=== PATIENT | female | born 1995 | race Caucasian/White ===

== ENCOUNTER 2019-04-14 19:57 | Emergency (ER) | payer OTHER ==
--- OUTSIDE RECORDS SUMMARY | 2019-04-14 20:13 | XMS REPORT ---
:1995 Author Organization [facility] [place] Address [address] [place] [address] Care Team Providers Name Role Phone Aislinn Elizabeth Unavailable Unavailable PROBLEMS Type Condition ICD9-CM Code [id number] Code Onset Condition SNOMED Code Dates Status Problem NSRT MPLNT SBDRM V25.5 Active CNTRCEP Problem CONTRACEPT V25.49 Active 278224600 SURVEILL NEC Problem CONTRACEPTIVE V25.9 Active [id number] MANGMT NOS ALLERGIES No Known Allergies ENCOUNTERS Encounter Location Date Diagnosis The [address] Mar, [facility] at [facility] [address] Mar, [facility] [address] Mar, LGSIL on Pap smear of cervix [facility] [place], [place] R87.612 ; Encounter for [place] [address] screening for infections with predominantly sexual mode of transmission Z11.3 ; Encounter for screening for HIV Z11.4 ; Encounter for surveillance of Nexplanon subdermal contraceptive Z30.46 and Urinary frequency R35.[address] Mar, Encounter for screening [facility] [place] examination for sexually [place] [address] transmitted disease Z11.[address] June, [facility] [address] May, Acute vulvitis N76.2 and [facility] at [place] Encounter for surveillance of [place] [address] Nexplanon subdermal contraceptive Z30.[address] May, Encounter for surveillance of [facility] [place] implantable subdermal [place] [address] contraceptive Z30.[address] Nov, [facility] at [facility] [address] Oct, [facility] at [facility] [address] Oct, Encounter for gynecological [facility] [place] examination without abnormal [place] [address] finding Z01.419 ; Encounter for screening for malignant neoplasm of cervix Z12.4 ; Encounter for screening for infections with predominantly sexual mode of transmission Z11.3 ; Encounter for screening for HIV Z11.4 ; Acute vaginitis N76.0 and Encounter for surveillance of implantable subdermal contraceptive Z30.[address] June, [facility] [address] Apr, Encounter for other [facility] [place] contraceptive management Z30.8 [place] [address] Apr, [facility] at [facility] [address] Jul, [facility] at [facility] [address] Jul, VACCIN FOR DISEASE NEC V05.8 [facility] at [facility] [id number] The [address] Apr, [facility] at [facility] [id number] The [address] Mar, [facility] at [facility] [address] Jan, [facility] at [facility] [address] Jan, [facility] at [facility] [address] The [place] [address] Kike Garsia Dec, [facility] at [facility] [id number] The [address] Oct, MEDICAL RECORDS 999.2 [facility] [address] June, Tonsillitis NOS 463 [facility] at [facility] [address] June, [facility] [address] Apr, Depression 311 and JOINT [facility] [place] PAIN-ANKLE 719.47 [place] 939172 The [address] Apr, Depression 311 [facility] at [facility] [address] Apr, Depression 311 and Glory [facility] [place] type IIb hyperlipoproteinemia [place] 939172 272.[address] Mar, Routine Well Child Exam V20.2 [facility] at [place] ; VACCIN FOR DISEASE NEC V05.8 [place] [address] ; Depression 311 and Morbid obesity 278.01 IMMUNIZATIONS No Known Immunizations SOCIAL HISTORY Never Assessed REASON FOR REFERRAL FUNCTIONAL STATUS PLAN OF CARE Activity Details Follow Up 1 Year Reason:annual exam Pending Test Thin Prep Image Guided VITAL SIGNS Height 64 in 2019-04-01 Weight 330 lbs 2019-04-01 BMI 56.64 kg/m2 2019-04-01 Blood pressure systolic 118 mm Hg 2019-04-01 Blood pressure diastolic 78 mm Hg 2019-04-01 MEDICATIONS Medication Instructions Dosage Frequency Start End Date Duration Status Date PROZAC 20 mg orally once a day 1 cap(s) 24h 30 day(s) Active Prozac 40 mg orally once a day 1 cap(s) 24h Active Nexplanon 68 subcutaneously 1 ea 17 June, Active mg once 2018 PROCEDURES Procedure Date Ordered Result Body Site SPECIMEN HANDLING CONVEYANCE FOR TRANSFER TO AN OUTSIDE Apr 01, 2019 LAB [facility]-HIV ANTIGEN W/HIV ANTIBODIES Apr 01, 2019 Rapid syphilis Apr 01, 2019 RESULTS Name Result Date Reference Range Urinanalysis Color/Clarity yellow/cloudy Leuk +1 Nitrite negative Urobili Protein negative pH 5 Blood negative Sp. Gr. Ketone Bili Glucose negative [facility] Hiv 1 Ag, HIV -1 & 2 Ab rapid test result nonreactive Rapid syphilis rapid syphillis non reactive URINE CULTURE 2019-04-01 URINE CULTURE 2019-04-01 CHLAMYDIA/GC GENITAL 2019-04-01 CHLAMYDIA, GENITAL NEGATIVE NEGATIVE GC, Genital NEGATIVE NEGATIVE REASON FOR VISIT Pap test and STI testing Insurance Providers [facility] Member Patient Patient Patient Patient Patient Subscriber Subscriber Subscriber Group Insurance Plan Plan Plan Plan ID Relationship Address Phone Name Date of ID Name Date of No Type Insurance Insurance Insurance Coverage to Subscriber Address Phone Name Dates MMCFIDELPATO CRUMP [phone] MMCFIDELIS terrence POWELLANNE [id number] CARE [place] [address] [facility] [address] CHP [phone] CHP self [place] [id number] [place] [id number] [address] [facility] [address] Medicaid HealthCare [phone] Medicaid self [place] [id number] [employer] 92 [employer] DAVID Contract Div [address] [facility] [address] FP HealthCare [phone] FPBP self [place] [id number] Medicaid Systems 92 Medicaid DAVID APG OCO Div [address] [employer] Contract [id number] Contract [facility] [address] MEDICAL (GENERAL) HISTORY Type Description Date Medical History depression Medical History up to date with imms Surgical History Nexplanon insertion-L arm 04/12/2012 Surgical History Nexplanon removal and re-insertion 04/21/2015
--- OUTSIDE RECORDS SUMMARY | 2019-04-14 20:14 | XMS REPORT ---
:1995 Author Organization [facility] [place] Address [address] [place] [address] Care Team Providers Name Role Phone Aislinn Elizabeth Unavailable Unavailable PROBLEMS Type Condition ICD9-CM Code [id number] Code Onset Condition SNOMED Code Dates Status Problem NSRT MPLNT SBDRM V25.5 Active CNTRCEP Problem CONTRACEPT V25.49 Active [id number] SURVEILL NEC Problem CONTRACEPTIVE V25.9 Active [id number] MANGMT NOS ALLERGIES No Information ENCOUNTERS Encounter Location Date Diagnosis The [address] Mar, [facility] at [facility] [address] Mar, Encounter for screening [facility] at [place] examination for sexually [place] [address] transmitted disease Z11.[address] June, [facility] at [facility] [address] May, Acute vulvitis N76.2 and [facility] at [place] Encounter for surveillance of [place] [address] Nexplanon subdermal contraceptive Z30.[address] May, Encounter for surveillance of [facility] [place] implantable subdermal [place] [address] contraceptive Z30.[address] Nov, [facility] at [facility] [address] Oct, [facility] at [facility] [address] Oct, Encounter for gynecological [facility] [place] examination without abnormal [place] [address] finding Z01.419 ; Encounter for screening for malignant neoplasm of cervix Z12.4 ; Encounter for screening for infections with predominantly sexual mode of transmission Z11.3 ; Encounter for screening for HIV Z11.4 ; Acute vaginitis N76.0 and Encounter for surveillance of implantable subdermal contraceptive Z30.[address] June, [facility] at [facility] [address] Apr, Encounter for other [facility] [place] contraceptive management Z30.8 [place] [address] Apr, [facility] at [facility] [address] Jul, [facility] at [facility] [address] Jul, VACCIN FOR DISEASE NEC V05.8 [facility] at [facility] [id number] The [address] Apr, [facility] at [facility] [id number] The [address] Mar, [facility] at [facility] [address] Jan, [facility] at [facility] [address] Jan, [facility] at [facility] [address] Dec, [facility] at [facility] [id number] The [address] Oct, MEDICAL RECORDS 999.2 [facility] at [place] [address] June, Tonsillitis NOS 463 [facility] at [facility] [address] June, [facility] at [facility] [address] Apr, Depression 311 and JOINT [facility] [place] PAIN-ANKLE 719.47 [place] [address]35[address] The Center [address] Apr, Depression 311 [facility] at [facility] [address] Apr, Depression 311 and Glory [facility] [place] type IIb hyperlipoproteinemia [place] [address] [address] Mar, Routine Well Child Exam V20.2 [facility] at [place] ; VACCIN FOR DISEASE NEC V05.8 [place] [address] ; Depression 311 and Morbid obesity 278.01 IMMUNIZATIONS No Known Immunizations SOCIAL HISTORY Never Assessed REASON FOR REFERRAL FUNCTIONAL STATUS PLAN OF CARE Activity Details Pending Test CHLAMYDIA/GC URINE VITAL SIGNS MEDICATIONS Unknown Medications PROCEDURES Procedure Date Ordered Result Body Site SPECIMEN HANDLING CONVEYANCE FOR TRANSFER TO AN OUTSIDE Mar 19, 2019 LAB RESULTS No Results REASON FOR VISIT Pap followup Insurance Providers [facility] Member Patient Patient Patient Patient Patient Subscriber Subscriber Subscriber Group Insurance Plan Plan Plan Plan ID Relationship Address Phone Name Date of ID Name Date of No Type Insurance Insurance Insurance Coverage to Subscriber Address Phone Name Dates Medicaid HealthCare 2-18 Medicaid self [place] [id number] [employer] 92 [employer] DAVID Contract Div [address] [facility] [address] CHP [phone] CHP self [place] [id number] [place] [address] [facility] [address] MMCFIDELIS ALISIA [phone] MMCFIDELIS self [place] [id number] CARE [place] [address] [facility] [address] FPBP HealthCare 18 FPBP self [place] [id number] Medicaid Systems 92 Medicaid DAVID [employer]G OCO Div [address] APG [employer]CO Contract [id number] Contract [facility] [address] MEDICAL (GENERAL) HISTORY Type Description Date Medical History depression Medical History up to date with imms Surgical History Nexplanon insertion-L arm 04/12/2012 Surgical History Nexplanon removal and re-insertion 04/21/2015
--- OUTSIDE RECORDS SUMMARY | 2019-04-14 20:14 | XMS REPORT ---
:1993 Author Organization [facility] [place] Address [address] [place] [address] Care Team Providers Name Role Phone Aislinn Elizabeth Unavailable Unavailable PROBLEMS Type Condition ICD9-CM Code [id number] Code Onset Condition SNOMED Code Dates Status Problem NSRT MPLNT SBDRM V25.5 Active CNTRCEP Problem CONTRACEPT V25.49 Active [id number] SURVEILL NEC Problem CONTRACEPTIVE V25.9 Active [id number] MANGMT NOS ALLERGIES No Information ENCOUNTERS Encounter Location Date Diagnosis The [address] Mar, [facility] at [facility] [address] Mar, [facility] at [facility] [address] Mar, LGSIL on Pap smear of cervix [facility] [place], [place] R87.612 ; Encounter for [place] [address] screening for infections with predominantly sexual mode of transmission Z11.3 ; Encounter for screening for HIV Z11.4 ; Encounter for surveillance of Nexplanon subdermal contraceptive Z30.46 and Urinary frequency R35.[address] Mar, Encounter for screening [facility] [place] examination for sexually [place] [address] transmitted disease Z11.[address] June, [facility] at [facility] [address] [address] May, Acute vulvitis N76.2 and [facility] [place] Encounter for surveillance of [place] [address] Nexplanon subdermal contraceptive Z30.[address] May, Encounter for surveillance of [facility] [place] implantable subdermal [place] [address] contraceptive Z30.[address] Nov, [facility] at [facility] [address] [address] Oct, [facility] at [facility] [address] [address] Oct, Encounter for gynecological [facility] [place] examination without abnormal [place] [address] finding Z01.419 ; Encounter for screening for malignant neoplasm of cervix Z12.4 ; Encounter for screening for infections with predominantly sexual mode of transmission Z11.3 ; Encounter for screening for HIV Z11.4 ; Acute vaginitis N76.0 and Encounter for surveillance of implantable subdermal contraceptive Z30.[address] June, [facility] at [facility] [address] [address] Apr, Encounter for other [facility] [place] contraceptive management Z30.8 [place] [address] Apr, [facility] at [facility] [address] [address] Jul, [facility] at [facility] [address] Jul, VACCIN FOR DISEASE NEC V05.8 [facility] at [facility] [id number] The [address] Apr, [facility] at [facility] [id number] The [address] Mar, [facility] at [facility] [address] [address] Jan, [facility] at [facility] [address] [address] Jan, [facility] at [facility] [address] [address] Dec, [facility] at [facility] [id number] The [address] Oct, MEDICAL RECORDS 999.2 [facility] at [facility] [address] June, Tonsillitis NOS 463 [facility] at [facility] [address] [address] June, [facility] at [facility] [address] [address] Apr, Depression 311 and JOINT [facility] [place] PAIN-ANKLE 719.47 [place] [address] [address] Apr, Depression 311 [facility] at [facility] [address] [address] Apr, Depression 311 and Glory [facility] [place] type IIb hyperlipoproteinemia [place] 250[address] 272.[address] Mar, Routine Well Child Exam V20.2 [facility] [place] ; VACCIN FOR DISEASE NEC V05.8 [address] ; Depression 311 and Morbid obesity 278.01 IMMUNIZATIONS No Known Immunizations SOCIAL HISTORY Never Assessed REASON FOR REFERRAL FUNCTIONAL STATUS PLAN OF CARE VITAL SIGNS MEDICATIONS Unknown Medications PROCEDURES No Known procedures RESULTS No Results REASON FOR VISIT urine culture result Insurance Providers [facility] Health Member Patient Patient Patient Patient Patient Subscriber Subscriber Subscriber Group Insurance Plan Plan Plan Plan ID Relationship Address Phone Name Date of ID Name Date of No Type Insurance Insurance Insurance Coverage to Subscriber Address Phone Name Dates Medicaid HealthCare Medicaid self [place] [id number] [employer] 92 [employer] DAVID Contract Div [address] [facility] [address] MMCFIDELIS ALISIA [phone] MMCFIDELIS self [place] [id number] CARE [place] [address] [facility] [address] CHP [phone] CHP self [place] [id number] [place] [address] 68 [facility] [address] FP HealthCare 18 FPBP self [place] [id number] Medicaid Systems 92 Medicaid [facility] APG OCO Div [address] [employer] Contract [id number] Contract [facility] [address] MEDICAL (GENERAL) HISTORY Type Description Date Medical History depression Medical History up to date with imms Surgical History Nexplanon insertion-L arm 04/12/2012 Surgical History Nexplanon removal and re-insertion 04/21/2015
[2019-04-14] MEDS ORDERED: Ketorolac INJ* 30 MG/ML 1 ML VIAL IV PUSH ONE (20:29)
[2019-04-14] MEDS ORDERED: Pantoprazole IV* 40 MG IV ONE (20:29)
[2019-04-14 20:55] LABS: ABS Eosinophils 0.1 10^3/ul (0-0.6); ABS Lymphocytes 2.7 10^3/ul (1.0-4.8); ABS Neutrophils 6.7 10^3/ul (1.5-7.7); Eosinophil % 0.9 %; Hematocrit 38 % (35-47); Hemoglobin 12.7 g/dL (12.0-16.0); Lymphocyte % 25.6 %; Mean Corpuscular HGB Conc 34 g/dL (31-36); Mean Corpuscular Hemoglobin 27 pg (27-31); Mean Corpuscular Volume 80 fL (80-97); Mean Platelet Volume 7.5 fL (7.4-10.4); Platelet Count 445 10^3/uL (150-450); Red Cell Distribution Width 15 % (10-15); White Blood Count 10.5 10^3/uL (3.5-10.8)
[2019-04-14 21:05] LABS: Rapid Strep Molecular Negative (Negative)
[2019-04-14 21:15] LABS: Albumin 4.4 g/dL (3.2-5.2); Albumin/Globulin Ratio 1.4 (1-3); BUN/Creatinine Ratio 9.7 (8-20); C Reactive Protein 13.03 mg/L (<8.01); Calcium 9.6 mg/dL (8.6-10.3); EGFR African American 119.4 (>60); EGFR Non-African American 98.7 (>60); Globulin 3.2 g/dL (2-4); Potassium 3.3 mmol/L (3.5-5.0); Total Bilirubin 0.3 mg/dL (0.2-1.0); Total Protein 7.6 g/dL (6.4-8.9)
[2019-04-14 21:20] LABS: HCG Pregnancy 42.82 mIU/mL
[2019-04-14 21:20] LABS: Urine Appearance Cloudy; Urine Bilirubin Negative (Negative); Urine Blood 2+ (Negative); Urine Color Yellow; Urine Glucose Negative (Negative); Urine Ketones Negative (Negative); Urine Nitrite Positive (Negative); Urine Protein 2+(100 mg/dL) (Negative); Urine Specific Gravity 1.023 (1.010-1.030); Urine Urobilinogen Negative (Negative)
--- NOTE | 2019-04-14 21:30 | ED ---
GI/ HPI - HPI Summary HPI Summary: 23 year old female presents with abdominal pain today. She went over a bump in the car and developed the pain. nothing injured the area. Pain is in the left upper quadrant. She is also been having rib pain on left side. had a previous fracture to the area Has had a cough. cough has been getting worst and she admits to some shortness of breath occasionally with it. Admits to some nausea and vomiting. she admits to a sore throat. Pain does not change when she eats anything. Denies any abnormal vaginal bleeding. No urinary symptoms. no flank pain. No previous surgeries. Has no medical conditions. - History of Current Complaint Chief Complaint: EDAbdPain Time Seen by Provider: 04/14/19 20:15 Stated Complaint: ABD PAIN PER PT Pain Intensity: 6 - Allergy/Home Medications Allergies/Adverse Reactions: Allergies Allergy/AdvReac Type Severity Reaction Status Date / Time chocolate flavor Allergy Severe See Comment Verified 04/14/19 21:12 Home Medications: Home Medications Metoclopramide TAB* [Reglan TAB*] 10 mg PO Q6H #20 tab 04/14/19 [Rx] PMH/Surg Hx/FS Hx/Imm Hx Endocrine/Hematology History: Denies: Hx Anticoagulant Therapy Respiratory History: Denies: Hx Asthma Infectious Disease History: No Infectious Disease History: Denies: Traveled Outside the [place] in Last 30 Days - Family History Known Family History: Positive: Non-Contributory - Social History Alcohol Use: Rare Substance Use Type: Reports: None Smoking Status (MU): Former Smoker Review of Systems Negative: Fever Negative: Chest Pain Positive: Cough Positive: Abdominal Pain, Vomiting, Nausea. Negative: Diarrhea All Other Systems Reviewed And Are Negative: Yes Physical Exam Triage Information Reviewed: Yes Vital Signs On Initial Exam: Initial Vitals Temp Pulse Resp BP Pulse Ox 97 F 98 15 141/111 99 04/14/19 19:59 04/14/19 19:59 04/14/19 19:59 04/14/19 19:59 04/14/19 19:59 Vital Signs Reviewed: Yes Appearance: Positive: Well-Appearing Skin: Positive: Warm, Dry Head/Face: Positive: Normal Head/Face Inspection Eyes: Positive: Normal, Conjunctiva Clear ENT: Positive: Pharynx normal Respiratory/Lung Sounds: Positive: Clear to Auscultation, Breath Sounds Present , Other - tenderness left lower ribs Cardiovascular: Positive: Normal, RRR Abdomen Description: Positive: Soft, Other: - tenderness in LUQ Bowel Sounds: Positive: Present Musculoskeletal: Positive: Normal Neurological: Positive: Normal Psychiatric: Positive: Normal Procedures - Sedation Patient Received Moderate/Deep Sedation with Procedure: No Diagnostics - Vital Signs Vital Signs Temp Pulse Resp BP Pulse Ox 04/14/19 19:59 97 F 98 15 141/111 99 - Laboratory Lab Results: Lab Results 04/14/19 04/14/19 04/14/19 Range/Units 20:35 20:35 20:35 WBC 10.5 (3.5-10.8) 10^3/uL RBC 4.70 (3.70-4.87) 10^6 /uL Hgb 12.7 (12.0-16.0) g/dL Hct 38 (35-47) % MCV 80 (80-97) fL MCH 27 (27-31) pg MCHC 34 (31-36) g/dL RDW 15 (10-15) % Plt Count 445 (150-450) 10^3/uL MPV 7.5 (7.4-10.4) fL Neut % (Auto) 63.6 % Lymph % (Auto) 25.6 % Roberts % (Auto) 9.6 % Eos % (Auto) 0.9 % Baso % (Auto) 0.3 % Absolute Neuts (auto) 6.7 (1.5-7.7) 10^3/ul Absolute Lymphs (auto) 2.7 (1.0-4.8) 10^3/ul Absolute Monos (auto) 1.0 H (0-0.8) 10^3/ul Absolute Eos (auto) 0.1 (0-0.6) 10^3/ul Absolute Basos (auto) 0.0 (0-0.2) 10^3/ul Absolute Nucleated RBC 0.0 10^3/ul Nucleated RBC % 0.0 D-Dimer, Quantitative < 200 (Less Than 230) ng/mL Sodium 141 (135-145) mmol/L Potassium 3.3 L (3.5-5.0) mmol/L Chloride 107 (101-111) mmol/L Carbon Dioxide 25 (22-32) mmol/L Anion Gap 9 (2-11) mmol/L BUN 7 (6-24) mg/dL Creatinine 0.72 (0.51-0.95) mg/dL Est GFR ( Amer) 119.4 (>60) Est GFR (Non-Af Amer) 98.7 (>60) BUN/Creatinine Ratio 9.7 (8-20) Glucose 87 (70-100) mg/dL Calcium 9.6 (8.6-10.3) mg/dL Total Bilirubin 0.30 (0.2-1.0) mg/dL AST 19 (13-39) U/L ALT 28 (7-52) U/L Alkaline Phosphatase 66 (34-104) U/L C-Reactive Protein 13.03 H (<8.01) mg/L Total Protein 7.6 (6.4-8.9) g/dL Albumin 4.4 (3.2-5.2) g/dL Globulin 3.2 (2-4) g/dL Albumin/Globulin Ratio 1.4 (1-3) Lipase 10 L (11.0-82.0) U/L Beta HCG, Quant 42.82 mIU/mL Urine Color Urine Appearance Urine pH (5-9) Ur Specific [place] (1.010-1.030) Urine Protein (Negative) Urine Ketones (Negative) Urine Blood (Negative) Urine Nitrate (Negative) Urine Bilirubin (Negative) Urine Urobilinogen (Negative) Ur Leukocyte Esterase (Negative) Urine Glucose (Negative) Monoscreen Negative (Negative) Group A Strep Rapid (Negative) 04/14/19 04/14/19 Range/Units 20:38 21:05 WBC (3.5-10.8) 10^3/uL RBC (3.70-4.87) 10^6 /uL Hgb (12.0-16.0) g/dL Hct (35-47) % MCV (80-97) fL MCH (27-31) pg MCHC (31-36) g/dL RDW (10-15) % Plt Count (150-450) 10^3/uL MPV (7.4-10.4) fL Neut % (Auto) % Lymph % (Auto) % Roberts % (Auto) % Eos % (Auto) % Baso % (Auto) % Absolute Neuts (auto) (1.5-7.7) 10^3/ul Absolute Lymphs (auto) (1.0-4.8) 10^3/ul Absolute Monos (auto) (0-0.8) 10^3/ul Absolute Eos (auto) (0-0.6) 10^3/ul Absolute Basos (auto) (0-0.2) 10^3/ul Absolute Nucleated RBC 10^3/ul Nucleated RBC % D-Dimer, Quantitative (Less Than 230) ng/mL Sodium (135-145) mmol/L Potassium (3.5-5.0) mmol/L Chloride (101-111) mmol/L Carbon Dioxide (22-32) mmol/L Anion Gap (2-11) mmol/L BUN (6-24) mg/dL Creatinine (0.51-0.95) mg/dL Est GFR ( Amer) (>60) Est GFR (Non-Af Amer) (>60) BUN/Creatinine Ratio (8-20) Glucose (70-100) mg/dL Calcium (8.6-10.3) mg/dL Total Bilirubin (0.2-1.0) mg/dL AST (13-39) U/L ALT (7-52) U/L Alkaline Phosphatase (34-104) U/L C-Reactive Protein (<8.01) mg/L Total Protein (6.4-8.9) g/dL Albumin (3.2-5.2) g/dL Globulin (2-4) g/dL Albumin/Globulin Ratio (1-3) Lipase (11.0-82.0) U/L Beta HCG, Quant mIU/mL Urine Color Yellow Urine Appearance Cloudy Urine pH 5.0 (5-9) Ur Specific [place] 1.023 (1.010-1.030) Urine Protein 2+(100 mg/dl) A (Negative) Urine Ketones Negative (Negative) Urine Blood 2+ A (Negative) Urine Nitrate Positive A (Negative) Urine Bilirubin Negative (Negative) Urine Urobilinogen Negative (Negative) Ur Leukocyte Esterase 2+ A (Negative) Urine Glucose Negative (Negative) Monoscreen (Negative) Group A Strep Rapid Negative (Negative) Result Diagrams: 04/14/19 20:35 04/14/19 20:35 Lab Statement: Any lab studies that have been ordered have been reviewed, and results considered in the medical decision making process. - Radiology chest Radiology Interpretation Completed By: ED Physician Summary of Radiographic Findings: no active disease Re-Evaluation - Re-Evaluation First Eval Re-Evaluation Time: 21:47 Change: Improved Comment: pain better GIGU Course/Dx - Course Course Of Treatment: 23 year old female presents with abdominal pain today. She went over a bump in the car and developed the pain. nothing injured the area. Pain is in the left upper quadrant. She is also been having rib pain on left side. had a previous fracture to the area Has had a cough. cough has been getting worst and she admits to some shortness of breath occasionally with it. Admits to some nausea and vomiting. she admits to a sore throat. Pain does not change when she eats anything. Denies any abnormal vaginal bleeding. No urinary symptoms. no flank pain. No previous surgeries. Has no medical conditions. on exam has tenderness LUQ and left lower ribs. pharynx erythematous. uvula midline. lungs CTA. wbc normal. strept neg. mono neg. hcg is 42. chest xray normal. gave pain meds with some improvement. discussed likely muscular pain from when went over bump in the car. told is . told take tyenlol for pain. gave reglan as needed for nausea. [facility] patient understand and agrees with plan. - Diagnoses Differential Diagnoses - Female: Gastritis, Other - mono, strept Provider Diagnoses: Pharyngitis, Cough, Abdominal pain, Discharge ED - Sign-Out/Discharge Documenting (check all that apply): Patient Departure - Discharge Plan Condition: Good Disposition: HOME Prescriptions: Metoclopramide TAB* [Reglan TAB*] 10 mg PO Q6H #20 tab Patient Education Materials: Upper Respiratory Infection (ED) [facility], [Z.CONVERSION PROVIDER TYPE] - [facility] [place] [facility] [Outside] Additional Instructions: take Tylenol every 6 hours for pain take reglan every 6 hours for nausea apply ice to the area take vitamin [facility] with primary Return to ED if develop any new or worsening symptoms - Billing Disposition and Condition Condition: GOOD Disposition: Home - Attestation Statements Provider Attestation: I was available for consultation for this patient. I did not evaluate the patient or participate in any medical decision making or disposition decisions unless I am specifically named in the chart as having consulted on the patient. If I have consulted on the patient, please see my own ED note on the patient encounter. Howard Deluna MD
[2019-04-14 21:52] VITALS: BP 149/94
--- NOTE | 2019-04-17 13:34 | ED ---
Imaging and Labs Follow Up Follow Up Type: Labs/Cultures Labs/Culture Result: Urine culture growing >100k e. coli. Patient Communication/Plan: Attempted to call pt. today at 1330 with no answer. Message left to return call. Rx for keflex sent to pharmacy. Provider Diagnoses: Pharyngitis, Cough, Abdominal pain,
== END 2019-04-14 21:51 | disposition home or self-care (01) ==
LOC: ED 19:57
DX: R10.12 Left upper quadrant pain (principal); R07.81 Pleurodynia; R05 Cough; R06.02 Shortness of breath; R11.2 Nausea with vomiting, unspecified; J02.9 Acute pharyngitis, unspecified; I51.7 Cardiomegaly; Z32.01 Encounter for pregnancy test, result positive; Z91.018 Allergy to other foods; Z87.891 Personal history of nicotine dependence
CPT/HCPCS: 36415; 71046; 80053; 81003; 81015; 83690; 84702; 85025; 85379; 86140; 86308; 87077; 87086; 87186; 87651; 96374; 96375; 99283; J1885

== ENCOUNTER 2019-05-10 09:09 | Emergency (ER) | payer OTHER ==
--- OUTSIDE RECORDS SUMMARY | 2019-05-10 09:24 | XMS REPORT ---
:1995 Author Organization [facility] Address [address] [place] [address] Care Team Providers Name Role Phone Aislinn Elizabeth Unavailable Unavailable PROBLEMS Type Condition ICD9-CM Code QYL88-BU Code Onset Condition SNOMED Code Dates Status Problem NSRT MPLNT SBDRM V25.5 Active CNTRCEP Problem CONTRACEPT V25.49 Active 447078098 SURVEILL NEC Problem CONTRACEPTIVE V25.9 Active 956507501 MANGMT NOS ALLERGIES No Information ENCOUNTERS Encounter Location Date Diagnosis The [address] Mar, [facility] [address] Apr, [facility] [address] Apr, [facility] [address] Mar, [facility] [address] Mar, [facility] [address] Mar, LGSIL on Pap smear of cervix [facility] [place] R87.612 ; Encounter for [place] [address] screening for infections with predominantly sexual mode of transmission Z11.3 ; Encounter for screening for HIV Z11.4 ; Encounter for surveillance of Nexplanon subdermal contraceptive Z30.46 and Urinary frequency R35.[address] Mar, Encounter for screening [facility] [place] examination for sexually [place] [address] transmitted disease Z11.[address] June, [facility] [address] May, Acute vulvitis N76.2 and [facility] [place] Encounter for surveillance of [place] [address] Nexplanon subdermal contraceptive Z30.[address] May, Encounter for surveillance of [facility] [place] implantable subdermal [place] [address] contraceptive Z30.[address] Nov, [facility] [address] Oct, [facility] [address] Oct, Encounter for gynecological [facility] [place] examination without abnormal [place] [address] finding Z01.419 ; Encounter for screening for malignant neoplasm of cervix Z12.4 ; Encounter for screening for infections with predominantly sexual mode of transmission Z11.3 ; Encounter for screening for HIV Z11.4 ; Acute vaginitis N76.0 and Encounter for surveillance of implantable subdermal contraceptive Z30.[address] June, [facility] [address] Apr, Encounter for other [facility] [place] contraceptive management Z30.8 [place] [address] Apr, [facility] [address] Jul, [facility] at [facility] [address] [address] Jul, VACCIN FOR DISEASE NEC V05.8 [facility] [id number] The [address] Apr, [facility] [id number] [address] Mar, [facility] [address] Jan, [facility] at [place] [address] The [facility] Jan, [facility] at [facility] [address] The [place] [address] Dec, [facility] at [facility] [id number] The [facility] Oct, MEDICAL RECORDS 999.2 [facility] [address] The [facility] June, Tonsillitis NOS 463 [facility] at [facility] [address] June, [facility] at [facility] [address] Apr, Depression 311 and JOINT [facility] [place] PAIN-ANKLE 719.47 [place] [address] Apr, Depression 311 [facility] at [facility] [address] Apr, Depression 311 and Glory [facility] [place] type IIb hyperlipoproteinemia [place] 148362 272.[address] Mar, Routine Well Child Exam V20.2 [facility] [place] ; VACCIN FOR DISEASE NEC V05.8 [place] [address] ; Depression 311 and Morbid obesity 278.01 IMMUNIZATIONS No Known Immunizations SOCIAL HISTORY Never Assessed REASON FOR REFERRAL FUNCTIONAL STATUS PLAN OF CARE VITAL SIGNS MEDICATIONS Unknown Medications PROCEDURES No Known procedures RESULTS No Results REASON FOR VISIT Needs call back from office Insurance Providers [facility] Health Member Patient Patient Patient Patient Patient Subscriber Subscriber Subscriber Group Insurance Plan Plan Plan Plan ID Relationship Address Phone Name Date of ID Name Date of No Type Insurance Insurance Insurance Coverage to Subscriber Address Phone Name Dates FP HealthCare FPBP self [place] [id number] Medicaid Systems 92 Medicaid DAVID APG OCO Div [address] OCO Contract [id number] [place] [address] Medicaid HealthCare 8002 Medicaid self [place] [id number] APG OCO Systems 92 APG OCO DAVID Contract Div [id number] [place] [address] [place]CF[place]IS [place] [phone] MMCFIDELIS self [place] [id number] CARE [place] [address] [facility] [address] CHP [phone] CHP self [place] [id number] [place] [id number] [facility] [address] MEDICAL (GENERAL) HISTORY Type Description Date Medical History depression Medical History up to date with imms Surgical History Nexplanon insertion-L arm 04/12/2012 Surgical History Nexplanon removal and re-insertion 04/21/2015
--- OUTSIDE RECORDS SUMMARY | 2019-05-10 09:24 | XMS REPORT ---
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 be viremic or due to de-conditioning. She will CB if it persists Added 02/17/2015 Goal: Goal for Acute Tonsillitis PT is distressed by this. It has changed a bit and she may have some Tinea as well. Will refer to derm.Encouraged to keep working on her weight Added 07/21/2015 Goal: Goal for Acanthosis Nigricans Advised otc compound w wart treatment- first shave skin down with pumice stone then apply treatment. may even apply duct tape to the area at this time to help and rid the foot of the warts more quickly. will send a derm referral for further evaluation of the area. Added 11/12/2015 Goal: Goal for Warts Plantar Left She is reacting to areas of green dye within her tattoos. Will need to use topical steroid over a large lynne to treat this.Will use Hydrocortisone 2.5% rather than a flourinated steroid Added 08/01/2016 Goal: Goal for Contact Dermatitis Due To Dyes It is hard for me to sort out how much of this complaint is loss of libido and how much is inhibited sexual response. She has had her depressive sx improved for only a few weeks and some of her sexual d ysfunction may resolve as her depression improvesI have asked her to monitor this for a while as it may improveI do not think this is related to antidepressant Added 08/01/2016 Goal: Goal for Sexual Dysfunction, Nos PT has serious bruxism with dental wear, loose teeth, TMJ with ear pain.She is advised to follow the dentist's advice: get temporary bite plate.Also advised to treat the TMJ sx with heat and IbuprofenAd vised to regard this syndrome as a reflection of underlying anxiety: walk more , learn relaxation techniques, etc Added 10/27/2016 Goal: Goal for Teeth Abrasion Bruxism You have viral pharyngitis, antibiotics are not indicated for this. Recommend salt water gargles, Chloraseptic spray. Acetaminophen or ibuprofen for discomfort. Added 07/03/2017 Goal: Resolution of symptoms. Pt went to podiatry and has not responded to initial treatment with nsaidThis soft swelling may be associated with a tendon, not a joint. Needs to see ortho as next step Added 07/03/2017 Goal: Resolution of pain. Will start omeprazole 20 daily.If not improved in 2-3 weeks she will call back Added 11/23/2017 Goal: Goal for Esophageal Reflux with Esophagitis Will start Amoxicillanshe will contact either her previous dentist in [place] or [facility] dental Added 11/23/2017 Goal: Goal for Peridontal Abscess Acute Evaluations & Outcomes Includes: Evaluations & Outcomes for active Goals Goal converted from Patient Problem data. Goal is currently In Progress. Added 05/23/2014 - In Progress Goal: to control symptoms to patient's satisfaction Goal converted from Patient Problem data. Goal is currently In Progress. Added 05/23/2014 - In Progress Goal: Smoking cessation Goal converted from Patient Problem data. Goal is currently In Progress. Added 05/23/2014 - In Progress Goal: gradual reduction in weight Goal converted from Patient Problem data. Goal is currently In Progress. Added 06/24/2014 - In Progress Goal: Goal for Ganglion Goal converted from Patient Problem data. Goal is currently In Progress. Added 02/17/2015 - In Progress Goal: Goal for Acute Tonsillitis Goal converted from Patient Problem data. Goal is currently In Progress. Added 07/21/2015 - In Progress Goal: Goal for Acanthosis Nigricans Goal converted from Patient Problem data. Goal is currently In Progress. Added 11/12/2015 - In Progress Goal: Goal for Warts Plantar Left Goal converted from Patient Problem data. Goal is currently In Progress. Added 08/01/2016 - In Progress Goal: Goal for Contact Dermatitis Due To Dyes Goal converted from Patient Problem data. Goal is currently In Progress. Added 08/01/2016 - In Progress Goal: Goal for Sexual Dysfunction, Nos Goal converted from Patient Problem data. Goal is currently In Progress. Added 10/27/2016 - In Progress Goal: Goal for Teeth Abrasion Bruxism Goal converted from Patient Problem data. Goal is currently In Progress. Added 07/03/2017 - In Progress Goal: Resolution of symptoms. Goal converted from Patient Problem data. Goal is currently In Progress. Added 07/03/2017 - In Progress Goal: Resolution of pain. Goal converted from Patient Problem data. Goal is currently In Progress. Added 11/23/2017 - In Progress Goal: Goal for Esophageal Reflux with Esophagitis Goal converted from Patient Problem data. Goal is currently In Progress. Added 11/23/2017 - In Progress Goal: Goal for Peridontal Abscess Acute
--- OUTSIDE RECORDS SUMMARY | 2019-05-10 09:24 | XMS REPORT ---
:1995 Author Organization [facility] Address [address] [place] [address] Care Team Providers Name Role Phone Aislinn Elizabeth Unavailable Unavailable PROBLEMS Type Condition ICD9-CM Code OQI56-DF Code Onset Condition SNOMED Code Dates Status Problem NSRT MPLNT SBDRM V25.5 Active CNTRCEP Problem CONTRACEPT V25.49 Active 404025625 SURVEILL NEC Problem CONTRACEPTIVE V25.9 Active 820479593 MANGMT NOS ALLERGIES No Information ENCOUNTERS Encounter Location Date Diagnosis The [address] Mar, [facility] [address] Apr, [facility] [address] Apr, Positive blood test [facility] [place] Z32.01 and Urinary tract [place] [address] infection, site not specified N39.[address] Apr, [facility] [address] Mar, [facility] [address] Mar, [facility] [address] Mar, LGSIL on Pap smear of cervix [facility] [place] R87.612 ; Encounter for [place] [address] screening for infections with predominantly sexual mode of transmission Z11.3 ; Encounter for screening for HIV Z11.4 ; Encounter for surveillance of Nexplanon subdermal contraceptive Z30.46 and Urinary frequency R35.[address] Mar, Encounter for screening [facility] [place] examination for sexually [place] [address] transmitted disease Z11.[address] June, [facility] [place] [address] May, Acute vulvitis N76.2 and [facility] [place] Encounter for surveillance of [place] [address] Nexplanon subdermal contraceptive Z30.[address] May, Encounter for surveillance of [facility] [place] implantable subdermal [place] [address] contraceptive Z30.[address] Nov, [facility] [address] Oct, [facility] [address] Oct, Encounter for gynecological [facility] [place] examination without abnormal [place] [address] finding Z01.419 ; Encounter for screening for malignant neoplasm of cervix Z12.4 ; Encounter for screening for infections with predominantly sexual mode of transmission Z11.3 ; Encounter for screening for HIV Z11.4 ; Acute vaginitis N76.0 and Encounter for surveillance of implantable subdermal contraceptive Z30.[address] June, [facility] [address] Apr, Encounter for other [facility] [place] contraceptive management Z30.8 [place] [address] Apr, [facility] [address] [address] Jul, [facility] [address] Jul, VACCIN FOR DISEASE NEC V05.8 [facility] at [facility] [id number] The [address] Apr, [facility] at [facility] [id number] [address] Mar, [facility] [address] [address] Jan, [facility] [address] Jan, [facility] [address] [place] [address] Dec, [facility] at [facility] [id number] The [address] Oct, MEDICAL RECORDS 999.2 [facility] [address] June, Tonsillitis NOS 463 [facility] [address] June, [facility] [address] Apr, Depression 311 and JOINT [facility] [place] PAIN-ANKLE 719.47 [place] 763542 The [address] Apr, Depression 311 [facility] [address] Apr, Depression 311 and Glory [facility] [place] type IIb hyperlipoproteinemia [place] 763542 272.[address] Mar, Routine Well Child Exam V20.2 [facility] at [place] ; VACCIN FOR DISEASE NEC V05.8 [place] [address] ; Depression 311 and Morbid obesity 278.01 IMMUNIZATIONS No Known Immunizations SOCIAL HISTORY Never Assessed REASON FOR REFERRAL FUNCTIONAL STATUS PLAN OF CARE VITAL SIGNS MEDICATIONS Unknown Medications PROCEDURES No Known procedures RESULTS No Results REASON FOR VISIT test results Insurance Providers [facility] Health Member Patient Patient Patient Patient Patient Subscriber Subscriber Subscriber Group Insurance Plan Plan Plan Plan ID Relationship Address Phone Name Date of ID Name Date of No Type Insurance Insurance Insurance Coverage to Subscriber Address Phone Name Dates [facility] HealthCare [phone] FPBP self [place] [id number] Medicaid Systems 92 Medicaid [place] APG OCO Div [address] APG OCO Contract [id number] Contract [facility] [address] [phone] CHP self [place] [id number] [place] [id number] [facility] [address] Medicaid HealthCare [phone] Medicaid self [place] [id number] APG [employer] Systems 92 APG OCO DAVID Contract Div [address] Contract [id number] [facility] [address] MMCFIDELIS ALISIA [phone] MMCFIDELIS self [place] [id number] CARE [place] [address] [place] [address] [facility] [address] MEDICAL (GENERAL) HISTORY Type Description Date Medical History depression Medical History up to date with [facility] Surgical History Nexplanon insertion-L arm 04/12/2012 Surgical History Nexplanon removal and re-insertion 04/21/2015
--- OUTSIDE RECORDS SUMMARY | 2019-05-10 09:24 | XMS REPORT ---
:1995 Author Organization [facility] Address [address] [place] [address] Care Team Providers Name Role Phone Aislinn Elizabeth Unavailable Unavailable PROBLEMS Type Condition ICD9-CM Code [id number] Code Onset Condition SNOMED Code Dates Status Problem NSRT MPLNT SBDRM V25.5 Active CNTRCEP Problem CONTRACEPT V25.49 Active 843948674 SURVEILL NEC Problem CONTRACEPTIVE V25.9 Active 707868881 MANGMT NOS ALLERGIES No Known Allergies ENCOUNTERS Encounter Location Date Diagnosis The [address] Mar, [facility] [address] Apr, [facility] [address] Apr, Positive blood test [facility] [place] Z32.01 and Urinary tract [place] [address] infection, site not specified N39.[address] Apr, [facility] [address] Mar, [facility] [address] Mar, [facility] [address] Mar, LGSIL on Pap smear of cervix [facility] [place] R87.612 ; Encounter for [place] [address] screening for infections with predominantly sexual mode of transmission Z11.3 ; Encounter for screening for HIV Z11.4 ; Encounter for surveillance of Nexplanon subdermal contraceptive Z30.46 and Urinary frequency R35.[address] Mar, Encounter for screening [facility] [place] examination for sexually [place] [address] transmitted disease Z11.[address] June, [facility] [place] [address] May, Acute vulvitis N76.2 and [facility] [place] Encounter for surveillance of [place] [address] Nexplanon subdermal contraceptive Z30.[address] May, Encounter for surveillance of [facility] [place] implantable subdermal [place] [address] contraceptive Z30.[address] Nov, [facility] [address] Oct, [facility] [place] [address] Oct, Encounter for gynecological [facility] [place] examination without abnormal [place] [address] finding Z01.419 ; Encounter for screening for malignant neoplasm of cervix Z12.4 ; Encounter for screening for infections with predominantly sexual mode of transmission Z11.3 ; Encounter for screening for HIV Z11.4 ; Acute vaginitis N76.0 and Encounter for surveillance of implantable subdermal contraceptive Z30.[address] June, [facility] [address] [address] Apr, Encounter for other [facility] [place] contraceptive management Z30.8 [place] [address] Apr, [facility] [address] Jul, [facility] [address] Jul, VACCIN FOR DISEASE NEC V05.8 [facility] at [facility] [id number] The [address] Apr, [facility] at [facility] [id number] The [address] Mar, [facility] [address] Jan, [facility] [address] Jan, [facility] [address] Dec, [facility] at [facility] [id number] The [address] Oct, MEDICAL RECORDS 999.[address] [facility] [address] June, Tonsillitis NOS [address] [facility] [address] [facility] [address] June, [facility] [address] Apr, Depression 311 and JOINT [facility] [place] PAIN-ANKLE 719.47 [place] [address]442 The [address] Apr, Depression [address] [facility] [address] [facility] [address] [address] Apr, Depression 311 and Glory [facility] [place] type IIb hyperlipoproteinemia [place] 207442 272.[address] Mar, Routine Well Child Exam V20.2 [facility] at [place] ; VACCIN FOR DISEASE NEC V05.8 [place] [address] ; Depression 311 and Morbid obesity 278.01 IMMUNIZATIONS No Known Immunizations SOCIAL HISTORY Never Assessed REASON FOR REFERRAL FUNCTIONAL STATUS PLAN OF CARE Activity Details Follow Up prn Reason: VITAL SIGNS Height 64 in 2019-04-17 Weight 330 lbs 2019-04-17 BMI 56.64 kg/m2 2019-04-17 Blood pressure systolic 112 mm Hg 2019-04-17 Blood pressure diastolic 72 mm Hg 2019-04-17 MEDICATIONS Medication Instructions Dosage Frequency Start End Duration Status Date Date Nexplanon 68 subcutaneously 1 ea 17 June, Active mg once 2018 Prozac 40 mg orally once a day 1 cap(s) 24h Not-Takin g PROZAC 20 mg orally once a day 1 cap(s) 24h 30 day(s) Not-Takin g PROCEDURES Procedure Date Ordered Result Body Site URINE TEST BY VISUAL COLOR COMPARISON April 17, 2019 RESULTS Name Result Date Reference Range Urine test by visual comparison Urine test negative URINE CULTURE 2019-04-17 HCG QUANTITATIVE 2019-04-17 HCG QUANTITATIVE < 3 URINE CULTURE 2019-04-17 REASON FOR VISIT possible nexplanon removal/ED f/u Insurance Providers [facility] Health Member Patient Patient Patient Patient Patient Subscriber Subscriber Subscriber Group Insurance Plan Plan Plan Plan ID Relationship Address Phone Name Date of ID Name Date of No Type Insurance Insurance Insurance Coverage to Subscriber Address Phone Name Dates CHP [phone] CHP self [place] [id number] [place] [id number] [facility] [address] MMCFIDELIS ALISIA [phone] MMCFIDELIS self [place] [id number] CARE [place] [address] [facility] [address] Medicaid HealthCare [phone] Medicaid self [place] [id number] APG OCO Systems 92 APG OCO DAVID Contract Div [address] Contract [address] [facility] [address] FPBP HealthCare [phone] FPBP self [place] [id number] Medicaid Systems 92 Medicaid [place] APG OCO Div [address] APG OCO Contract [id number] Contract [facility] [address] MEDICAL (GENERAL) HISTORY Type Description Date Medical History depression Medical History up to date with imms Surgical History Nexplanon insertion-L arm 04/12/2012 Surgical History Nexplanon removal and re-insertion 04/21/2015
--- NOTE | 2019-05-10 09:26 | ED ---
GI/ HPI - HPI Summary HPI Summary: 23 year old F presenting to [facility] with a chief complaint of vomiting and a headache since 21:00 last night. The patient rates the pain 8/10 in severity. Patient reports diarrhea and coughing after vomiting. Symptoms aggravated by food. Symptoms alleviated by nothing. Patient denies any blood in her vomit or fever. The patient was told that she was in the emergency department previously but was told that she was not at her follow-up appointment. She states that she is still having the same symptoms. The patient denies any previous pregnancies. Medication list reviewed. Allergy list reviewed. Home Medications Medication Instructions Recorded Confirmed Type Metoclopramide TAB* [Reglan TAB*] 10 mg PO Q6H #20 tab 04/14/19 Rx Cephalexin CAP* [Keflex CAP*] 500 mg PO BID #20 cap 04/17/19 Rx Cephalexin CAP* [Keflex CAP*] 500 mg PO BID #20 cap 04/17/19 Rx - History of Current Complaint Chief Complaint: EDNauseaVomitDiarrh Time Seen by Provider: 05/10/19 09:13 Stated Complaint: /VOMITING Hx Obtained From: Patient Onset/Duration: Started Hours Ago Timing: Constant Pain Intensity: 8 Associated Signs and Symptoms: Positive: Diarrhea, Cough, Other: - Headache. Negative: Hematemesis, Fever Aggravating Factor(s): Food Alleviating Factor(s): Nothing - Allergy/Home Medications Allergies/Adverse Reactions: Allergies Allergy/AdvReac Type Severity Reaction Status Date / Time chocolate flavor Allergy Severe See Comment Verified 05/10/19 09:12 Home Medications: Home Medications Ondansetron ODT TAB* [Zofran 4 MG Odt TAB*] 4 mg PO Q8H PRN #12 tab.odt [Rx] PMH/Surg Hx/FS Hx/Imm Hx Endocrine/Hematology History: Denies: Hx Anticoagulant Therapy Respiratory History: Denies: Hx Asthma Psychiatric History: Reports: Hx Depression - Surgical History Surgical History: None Infectious Disease History: No Infectious Disease History: Denies: Traveled Outside the [place] in Last 30 Days - Family History Known Family History: Positive: Diabetes - Social History Alcohol Use: Rare Substance Use Type: Reports: None Smoking Status (MU): Light Every Day Tobacco Smoker Type: eCigaresharda Review of Systems Negative: Fever Positive: Cough Gastrointestinal: Negative - Hematemesis Positive: Vomiting, Diarrhea Positive: Headache All Other Systems Reviewed And Are Negative: Yes Physical Exam - Summary Physical Exam Summary: Constitutional: Well-developed, morbidly obese, Alert. (-) Distressed Skin: Warm, Dry HENT: Normocephalic; Atraumatic Eyes: Conjunctiva normal Neck: Musculoskeletal ROM normal neck. (-) JVD, (-) Stridor, (-) Tracheal deviation Cardio: Rhythm regular, rate normal, Heart sounds normal; Intact distal pulses; Radial pulses are 2+ and symmetric. (-) Murmur Pulmonary/Chest wall: Effort normal. (-) Respiratory distress, (-) Wheezes, (-) Rales Abd: Soft, (-) tenderness, (-) Distension, (-) Guarding, (-) Rebound Musculoskeletal: (-) Edema Lymph: (-) Cervical adenopathy Neuro: Alert, Oriented x3 Psych: Mood and affect Normal Triage Information Reviewed: Yes Vital Signs On Initial Exam: Initial Vitals Temp Pulse Resp BP Pulse Ox 97.3 F 87 15 173/108 97 05/10/19 09:10 05/10/19 09:10 05/10/19 09:10 05/10/19 09:10 05/10/19 09:10 Vital Signs Reviewed: Yes Procedures - Sedation Patient Received Moderate/Deep Sedation with Procedure: No Diagnostics - Vital Signs Vital Signs Temp Pulse Resp BP Pulse Ox 05/10/19 09:10 97.3 F 87 15 173/108 97 - Laboratory Result Diagrams: 05/10/19 09:51 05/10/19 09:51 Lab Statement: Any lab studies that have been ordered have been reviewed, and results considered in the medical decision making process. Re-Evaluation - Re-Evaluation First Eval Re-Evaluation Time: 12:40 Change: Improved Comment: The patient is tolerating PO. GIGU Course/Dx - Course Course Of Treatment: Patient is here with vomiting since yesterday. Patient is overall well-appearing with a benign abdominal exam. Patient had blood tests performed which were grossly unremarkable. Patient had a questionable positive test a couple weeks ago but was negative here. Patient is given IV fluids and Zofran. Patient was able to tolerate by mouth prior to discharge - Diagnoses Provider Diagnoses: Vomiting, Diarrhea Discharge ED - Sign-Out/Discharge Documenting (check all that apply): Patient Departure - Discharge Plan Condition: Stable Disposition: HOME Prescriptions: Ondansetron ODT TAB* [Zofran 4 MG Odt TAB*] 4 mg PO Q8H PRN #12 tab.odt PRN Reason: Vomiting Patient Education Materials: Acute Nausea and Vomiting (ED), Acute Diarrhea (ED ) Referrals: [facility] [Outside] - 3 Days Additional Instructions: Follow-up with your PCP in 1-3 days. Take your medications as prescribed. Return to the emergency department if you have any abdominal pain, especially in the right upper abdomen, cannot tolerate fluids for 12 hours, feel like you are going to pass out, or any other concerning symptoms. Stay hydrated with Pedialyte. - Billing Disposition and Condition Condition: STABLE Disposition: Home - Attestation Statements Document Initiated by Renee: Yes Documenting Scribe: Chantel John Provider For Whom Renee is Documenting (Include Credential): Ponce Weinstein MD Scribe Attestation: Chantel Weldon scribed for Ponce Weinstein MD on 05/10/19 at 1451. Scribe Documentation Reviewed: Yes Provider Attestation: The documentation as recorded by the Chantel barriga accurately reflects the service I personally performed and the decisions made by , Ponce Weinstein MD Status of Scribe Document: Viewed
[2019-05-10] MEDS ORDERED: NS 0.9% 1000 ML** 1,000 ML IV ONE (09:55)
[2019-05-10 10:06] LABS: ABS Basophils 0.1 10^3/ul (0-0.2); ABS Eosinophils 0.1 10^3/ul (0-0.6); ABS Lymphocytes 1.6 10^3/ul (1.0-4.8); ABS Monocytes 0.6 10^3/ul (0-0.8); ABS Neutrophils 6.7 10^3/ul (1.5-7.7); Eosinophil % 0.9 %; Hematocrit 37 % (35-47); Hemoglobin 12.3 g/dL (12.0-16.0); Lymphocyte % 17.5 %; Mean Corpuscular HGB Conc 34 g/dL (31-36); Mean Corpuscular Hemoglobin 27 pg (27-31); Mean Corpuscular Volume 81 fL (80-97); Mean Platelet Volume 7.6 fL (7.4-10.4); Platelet Count 400 10^3/uL (150-450); Red Blood Count 4.55 10^6 /uL (3.70-4.87); Red Cell Distribution Width 16 % (10-15); White Blood Count 9.1 10^3/uL (3.5-10.8)
[2019-05-10 10:25] LABS: ALT 37 U/L (7-52); AST 22 U/L (13-39); Albumin/Globulin Ratio 1.1 (1-3); Alkaline Phosphatase 75 U/L (34-104); Anion Gap 7 mmol/L (2-11); BUN/Creatinine Ratio 16.7 (8-20); Blood Urea Nitrogen 9 mg/dL (6-24); CO2 Carbon Dioxide 23 mmol/L (22-32); Calcium 9.2 mg/dL (8.6-10.3); Chloride 107 mmol/L (101-111); EGFR African American 166.4 (>60); EGFR Non-African American 137.6 (>60); Globulin 3.6 g/dL (2-4); Glucose 113 mg/dL (70-100); Potassium 3.8 mmol/L (3.5-5.0); Sodium 137 mmol/L (135-145); Total Protein 7.6 g/dL (6.4-8.9)
[2019-05-10 10:31] LABS: HCG Pregnancy < 0.60 mIU/mL
[2019-05-10] MEDS ORDERED: Ondansetron INJ* 2 MG/ML VIAL IV ONE (11:19)
[2019-05-10 13:03] VITALS: BP 132/85
== END 2019-05-10 13:02 | disposition home or self-care (01) ==
LOC: ED 09:09
DX: R11.10 Vomiting, unspecified (principal); R19.7 Diarrhea, unspecified; F17.210 Nicotine dependence, cigarettes, uncomplicated; R05 Cough; R51 Headache
CPT/HCPCS: 36415; 80053; 83690; 84702; 85025; 96361; 96374; 99282; J2405